=== PATIENT | male | born 1960 | race Caucasian/White ===

== ENCOUNTER 2021-05-19 09:01 | Emergency (ER) | payer BC, SELFPAY ==
--- NOTE | ~2021-05-19 | CT_ITS ---
EXAMINATION: CT lumbar spine wo con DATE: 05/19/2021 11:30 INDICATION: Midline low back pain. TECHNIQUE: Computed tomography (CT) of the lumbar spine was performed without intravenous contrast. A utomated exposure control and iterative reconstruction technique were employed. The dose-length produ ct was 1136.04 mGy-cm. COMPARISON: None FINDINGS: There is 7 mm anterolisthesis of L4 and L5. Vertebral body heights are normal. There is mil dly decreased disc height at L2-L3 and L4-L5. The following disc levels are specifically discussed: L1-L2: The disc does not extend beyond the endplate margin. There is mild bilateral facet joint osteo arthritis. There is no neural foraminal stenosis. There is no central canal stenosis. L2-L3: The disc is bulging. There is moderate right and severe left facet joint osteoarthritis. There is mild bilateral neural foraminal stenosis. There is mild central canal stenosis. L3-L4: The disc is bulging. There is severe bilateral facet joint osteoarthritis. There is mild bilat eral neural foraminal stenosis. There is mild central canal stenosis. L4-L5: The disc is bulging. There is severe bilateral facet joint osteoarthritis. There is mild right and moderate left neural foraminal stenosis. There is moderate central canal stenosis. L5-S1: The disc does not extend beyond the endplate margin. There is severe bilateral facet joint ost eoarthritis. There is mild right neural foraminal stenosis. There is no central canal stenosis. IMPRESSION: 1. Moderate lumbar spondylosis. Reviewed, dictated and finalized at location A.
[2021-05-19 09:07] VITALS: BP 173/87; PULSE 73; RESP 20; TEMP 36.4; O2SAT 97
--- NOTE | 2021-05-19 09:22 | ED.GENADULT ---
HPI - General Adult General Chief complaint: Unspecified <Betty Partida PA-C - Last Filed: 05/19/21 19:58> Stated complaint: back pain, blood in stool <Betty Partida PA-C - Last Filed: 05/19/21 19:58> Time Seen by Provider: 05/19/21 09:02 <Betty Partida PA-C - Last Filed: 05/19/21 19:58> Source: patient <Betty Partida PA-C - Last Filed: 05/19/21 19:58> Mode of arrival: ambulatory <Betty Partida PA-C - Last Filed: 05/19/21 19:58> Limitations: no limitations <YARON Castellanos Last Filed: 05/19/21 19:58> History of Present Illness HPI narrative: Patient is a 60-year-old male who presents the ED with report of mid lower back pain. Patient reports he had a work injury last May or June in which he injured his lumbar back. He had a MRI done of his lumbar spine on 10/08/2020 and was reportedly told he needed to have spinal surgery done for this but the Workmen's Comp is not covering it and he has therefore not received any further evaluation since the MRI. He has not seen his PCP for this. He has been managing the pain at home, however over the last 4 days, he reports increased pain. No any new injury or strenuous activity. The pain is worse on his right lower back and radiates down his right leg. He reports tingling in his lateral RLE, but denies any bowel or bladder incontinence, saddle anesthesia, numbness, weakness. Patient has been taking ibuprofen, Tylenol, Advil at home over the past couple days without much relief. He took a hydrocodone and Flexeril around 5:30 AM this morning. Patient also mentions having bright red blood with wiping today. He denies any straining, abdominal pain, or pain with BM. Denies overuse of Ibuprofen, history of hemorrhoids, nausea, vomiting, urinary symptoms. <YARON Castellanos Last Filed: 05/19/21 19:58> Related Data Allergies/adverse reactions: Allergies Allergy/AdvReac Type Severity Reaction Status Date / Time No Known Allergies Allergy Mild Verified 05/19/21 09:17 <Betty Partida PA-C - Last Filed: 05/19/21 19:58> Review of Systems Review of Systems: CONSTITUTIONAL: Denies fever, chills, or sweats. CARDIOVASCULAR: Denies chest pain. RESPIRATORY: Denies dyspnea. GASTROINTESTINAL: Reports bright red blood with wiping. Denies abdominal pain, nausea, vomiting, rectal pain, incontinence, or diarrhea. GENITOURINARY: Denies dysuria, retention, hematuria. MUSCULOSKELETAL: Reports R lower back pain, down RLE. Denies back pain. NEUROLOGIC: Reports tingling in RLE. Denies headache, numbness, or weakness. <Betty Partida PA-C - Last Filed: 05/19/21 19:58> All systems reviewed & are unremarkable except as noted in HPI and below <Betty Partida PA-C - Last Filed: 05/19/21 19:58> PMFSH Past Medical History Medical History: Medical History (Updated 05/20/21 @ 00:00 by Jordan Downey) Hypercholesterolemia <Betty Partida PA-C - Last Filed: 05/19/21 19:58> Surgical History Surgical History: Surgical History (Updated 05/19/21 @ 09:26 by Betty Partida PA-C) H/O neck surgery <Betty Partida PA-C - Last Filed: 05/19/21 19:58> Social History Social History: Social History (Updated 05/19/21 @ 09:26 by Betty Partida PA-C) Smoking status: Former smoker <Betty Partida PA-C - Last Filed: 05/19/21 19:58> Exam Narrative: GENERAL: Well appearing, well-nourished, non-toxic, in no acute distress. HEAD: Normocephalic, atraumatic. NECK: Supple. No adenopathy, no masses. RESPIRATORY: Airway patent, respirations nonlabored. Clear to auscultation bilaterally, no rales, rhonchi, wheezing. CARDIOVASCULAR: Regular rate and rhythm without murmurs, rubs, or gallops. Peripheral pulses 2+ and equal bilaterally. ABDOMINAL: Soft, nontender, nondistended, no hepatosplenomegaly. Normoactive BS. RECTAL: Normal tone. No gross bleeding. No external hemorrhoids. MUSCULOSKELETAL: Moves all extremities. R paraspinal muscle tender
[2021-05-19] MEDS: KETOROLAC 30 MG/ML VIAL (*BKC) IV PUSH (09:51)
[2021-05-19 09:58] LABS: Basophils Absolute Auto 0.1 K/mm3 (0.0-0.1); Basophils Percent Auto 0.7 % (0.2-1.2); Eosinophils Absolute Auto 0.1 K/mm3 (0-0.3); Eosinophils Percent Auto 1.2 % (0-4.4); Hematocrit 43.7 % (42.0-52.0); Hemoglobin 14.7 g/dL (14.0-18.0); Immature Granulocyte Absolute 0.03 K/mm3 (0.00-0.031); Immature Granulocyte Percent A 0.3 % (0-0.5); Lymphocytes Absolute Auto 2.33 K/mm3 (0.9-3.2); Mean Corpuscular HGB Conc 33.6 g/dl (32-36); Mean Corpuscular Hemoglobin 29.9 pg (26-34); Mean Platelet Volume 8.8 fl (7.4-10.4); Monocytes Absolute Auto 0.7 K/mm3 (0.1-0.6); Monocytes Percent Auto 7.5 % (2.6-8.5); Neutrophils Absolute Auto 5.5 K/mm3 (1.3-6.7); Neutrophils Percent Auto 63.3 % (45.5-73.1); Platelet Count Result 282 k/mm3 (150-375); Red Blood Count 4.91 M/mm3 (4.6-6.20); Red Cell Distribution Width 13.2 % (11.5-14.5); White Blood Count 8.6 K/mm3 (4.5-10.0)
[2021-05-19 10:00] LABS: Add Urine Microscopic? NO; Appearance Urine Clear (Clear); Bilirubin Urine Negative (Negative); Blood Urine Negative (Negative); Color Urine Yellow (Yellow); Glucose Urine UA Negative (Negative); Ketones Urine Negative (Negative); Leukocyte Esterase Ur Negative LEU/UL (Negative); Nitrate Urine Negative (Negative); Protein Urine Negative (Negative); Specific Grav Ur 1.027 (1.001-1.035); Urobilinogen Urine Negative mg/dL (<2.0)
[2021-05-19 10:08] LABS: Alanine Aminotransferase 25 U/L (4-50); Albumin Level 4.3 g/dL (3.5-5.1); Alkaline Phosphatase 81 U/L (38-126); Anion Gap 6 mmol/L (8-16); Aspartate Amino Transferase 32 U/L (17-59); Bilirubin,Total 0.3 mg/dL (0.2-1.3); Blood Urea Nitrogen 13 mg/dL (9-20); Calcium 9.1 mg/dL (8.4-10.2); Carbon Dioxide 27 mmol/L (22-30); Chloride 105 mmol/L (98-107); Estimated CRCL calculation 92 ml/min; Estimated Glomerular Filt Rate > 60; Glucose 90 mg/dL (65-110); Potassium 4.2 mmol/L (3.4-5.0); Sodium 138 mmol/L (137-145)
[2021-05-19 10:57] VITALS: BP 140/87; PULSE 60; RESP 18; O2SAT 95
[2021-05-19] MEDS: MORPHINE SULFATE (*CRX) 4 MG/ML INJ IV PUSH (12:02)
[2021-05-19] MEDS: ONDANSETRON INJ 4 MG/2 ML VIAL IV PUSH (12:02)
[2021-05-19 12:17] VITALS: BP 147/86; PULSE 84; RESP 16; O2SAT 98
== END 2021-05-19 12:18 | disposition home or self-care (01) ==
PROVIDERS: Physician Assistant; Emergency Provider Emergency Medicine; PCP Internal Medicine
DX: M54.41 Lumbago with sciatica, right side (principal); K64.8 Other hemorrhoids; E78.00 Pure hypercholesterolemia, unspecified; Z87.891 Personal history of nicotine dependence; M47.816 Spondylosis without myelopathy or radiculopathy, lumbar region
CPT/HCPCS: 36415; 72131; 80053; 81003; 85025; 96374; 96375; 99284; J1885; J2270; J2405

== ENCOUNTER 2022-07-02 19:53 | Emergency (ER) | payer BC, SELFPAY ==
[2022-07-02 19:58] VITALS: BP 143/84; PULSE 66; RESP 18; TEMP 37.4; O2SAT 99
--- NOTE | 2022-07-02 20:04 | ED.URI ---
HPI - URI/Sore Throat General Chief Complaint: Upper Respiratory Infection Stated Complaint: cough/sinus/chest Time Seen by Provider: 07/02/22 20:04 Source: patient, RN notes reviewed and old records reviewed Mode of arrival: ambulatory Limitations: no limitations History of Present Illness HPI Narrative: 61-year-old male presents to the [facility] with complaints of cough, chest congestion, sinus congestion for 5 days. States he has had chronic respiratory issues after having COVID the last 3 years Denies any fevers. Denies any chest pain. Previous smoker, quit 12 years ago Onset (ago): day(s) (5) Related Data Home Medications Medication Instructions Recorded Confirmed simvastatin 40 mg tablet 40 mg DIRECTED 07/02/22 07/02/22 Allergies Allergy/AdvReac Type Severity Reaction Status Date / Time No Known Allergies Allergy Mild Verified 05/19/21 09:17 Review of Systems Review of Systems: All systems reviewed & are unremarkable except as noted in HPI and below Constitutional: Constitutional: Reports no additional constitutional complaints Eyes: Eyes: Reports no additional eye complaints ENT: Reports as per HPI Cardiovascular: Cardiovascular: Reports no additional cardiovascular complaints, Denies chest pain and Denies dyspnea Respiratory: Respiratory: Reports as per HPI, Reports chest congestion, Reports cough and Denies dyspnea Gastrointestinal: Gastrointestinal: Reports no additional gastrointestinal complaints, Denies abdominal pain, Denies nausea and Denies vomiting Musculoskeletal: Musculoskeletal: Reports no additional musculoskeletal complaints Integumentary/Breasts: Skin/Breast: Reports system reviewed and no additional complaints, except as docu Neurologic: Reports system reviewed and no additional complaints, except as documented Psychiatric: Psychiatric: Reports no additional psychiatric complaints Allergic/Immunologic: Allergic/Immunologic: Reports no additional allergic/immunologic complaints [facility] Past Medical History Medical History (Updated 07/02/22 @ 20:16 by Kaila Steele APRN) Hypercholesterolemia Surgical History Surgical History (Updated 07/02/22 @ 20:16 by Kaila Steele APRN) H/O neck surgery History of tonsillectomy Social History Social History Smoking status: Former smoker Comments At the time of my signature, I reviewed and agree with the nursing past medical, surgical, social, and family history. There is no relevant family history pertinent to the patient complaint. Exam Const: General: cooperative, healthy appearing, comfortable, no acute distress, well developed, alert and well nourished Nutritional Appearance: well nourished Orientation/consciousness: patient oriented x3 Limitations: no limitations HENMT: Head: normal to inspection Ears: hearing grossly normal bilaterally and external ears normal Face/Nose/Sinus: Normal external nose present, Normal nares present, Normal nasal mucous membranes and turbinates present and normal facial exam Face and sinus: normal facial exam Mouth: Yes Normal oral and palatal mucosa present, Yes lip normal and Yes moist mucous membranes Throat: posterior oropharynx normal, uvula midline and tonsils absent Eyes: General: appearance normal, both eyes and all related structures Alignment and Position: alignment normal Periorbital: periorbital findings normal Pupils: Equal, round and reactive pupils present EOM: EOMs intact bilaterally Neck: Neck: normal visual inspection, full ROM, no lymphadenopathy and no meningeal signs Chest: Chest palpation & inspection: normal inspection of the chest Resp: Effort & Inspection: normal respiratory effort and able to speak in complete sentences Auscultation: clear to auscultation bilaterally, no crackles, no rales, no rhonchi and wheezes expiratory wheezes (Right lower) Cardio: Rate: regular rate Rhythm: regular rhythm Back/
== END 2022-07-02 20:18 | disposition home or self-care (01) ==
PROVIDERS: Emergency Provider Nurse Practitioner
DX: J40 Bronchitis, not specified as acute or chronic (principal); E78.00 Pure hypercholesterolemia, unspecified; Z87.891 Personal history of nicotine dependence
CPT/HCPCS: 99213; G0463